=== PATIENT | male | born 1950 | race African-American/Black ===

== ENCOUNTER 2021-08-12 22:10 | Inpatient (IN) ==
[2021-08-13 00:29] LABS: Calcium 8.4 MG/DL (8.5-10.1); Osmolality,Calculated 274.8 MOS/KG (273-304); Potassium 3.3 MMOL/L (3.5-5.1)
[2021-08-13 00:48] LABS: Basophils % 0.2 % (0.0-0.8); Eosinophils % 0.1 % (0.00-10.9); Hematocrit 44.7 VOL% (42.0-52.0); Hemoglobin 14.4 GM/DL (14.0-18.0); Immature Granulocytes % 0.5 %; Immature Granulocytes Absolute 0.06 #; Lymphocytes # 0.7 10*3/uL (1.4-4.0); Lymphocytes % 5.3 % (21.2-54.2); Mean Corpuscular HGB Conc 32.2 GM/DL (32-36); Mean Corpuscular Volume 89.6 FL (87-102); Mean Platelet Volume 9.7 FL (9.6-12.0); Monocytes % 6.2 % (1.7-12.7); Neutrophils % 87.7 % (38.7-73.9); Platelet Count 205 T/CUMM (130-400); Red Blood Count 4.99 MC/CUMM (3.8-5.5); Red Cell Distribution Width 14.8 % (9.3-17.3); White Blood Count 12.9 T/CUMM (4-12)
[2021-08-13] MEDS ORDERED: PIPERACILLIN/TAZOBACTAM 3,375 MG in SODIUM CHLORIDE 0.9% 100 ML IV STA (01:55)
[2021-08-13] MEDS ORDERED: ONDANSETRON 4 MG/2 ML VIAL ONE (02:55)
[2021-08-13] MEDS ORDERED: fentaNYL 100 MCG/2 ML VIAL ONE (02:56)
[2021-08-13] MEDS ORDERED: ONDANSETRON 4 MG/2 ML VIAL IV STA (04:38)
[2021-08-13] MEDS ORDERED: fentaNYL 100 MCG/2 ML VIAL IV STA (04:38)
[2021-08-13] MEDS ORDERED: HYDROmorphone 2 MG/1 ML VIAL ONE (04:43)
[2021-08-13] MEDS ORDERED: HYDROmorphone 2 MG/1 ML VIAL IV STA (04:47)
[2021-08-13] MEDS ORDERED: DEXTROSE 50% 25 GM/50 ML SYRINGE IV PRN (07:58)
[2021-08-13] MEDS ORDERED: GLUCAGON 1 MG VIAL IM PRN (07:58)
[2021-08-13] MEDS ORDERED: hydrALAZINE 20 MG/1 ML VIAL IV PRN (07:58)
[2021-08-13] MEDS ORDERED: ACETAMINOPHEN 325 MG TABLET PO PRN (07:58)
[2021-08-13] MEDS ORDERED: ONDANSETRON 4 MG/2 ML VIAL IV PRN (07:58)
[2021-08-13] MEDS ORDERED: NICOTINE 21 MG/24 HR PATCH TRANSDERM PRN (07:58)
[2021-08-13] MEDS ORDERED: LORazepam 2 MG/1 ML VIAL IV PRN (08:00)
[2021-08-13] MEDS ORDERED: THIAMINE INJ 100 MG, FOLIC ACID INJ 1 MG, MAGNESIUM SULF INJ 2 GM, MULTIVITAMIN INJ 10 ... IV SCH (08:00)
[2021-08-13] MEDS: PIPERACILLIN/TAZOBACTAM 3,375 MG in SODIUM CHLORIDE 0.9% 100 ML IV SCH ×2 (08:20→17:15)
[2021-08-13 08:28] LABS: Basophils % 0.2 % (0.0-0.8); Hematocrit 45.3 VOL% (42.0-52.0); Hemoglobin 14.4 GM/DL (14.0-18.0); Immature Granulocytes % 0.6 %; Immature Granulocytes Absolute 0.08 #; Lymphocytes # 0.9 10*3/uL (1.4-4.0); Lymphocytes % 6.6 % (21.2-54.2); Mean Corpuscular HGB Conc 31.8 GM/DL (32-36); Mean Corpuscular Volume 90.2 FL (87-102); Mean Platelet Volume 9.4 FL (9.6-12.0); Monocytes % 5.1 % (1.7-12.7); Neutrophils % 87.5 % (38.7-73.9); Platelet Count 206 T/CUMM (130-400); Red Blood Count 5.02 MC/CUMM (3.8-5.5); White Blood Count 13.5 T/CUMM (4-12)
[2021-08-13 08:39] LABS: INR 1.1; PT Patient Result 12.3 SECS (10.5-12.0)
[2021-08-13 08:50] LABS: Albumin 3.1 G/DL (3.4-5.0); Bilirubin,Total 0.8 MG/DL (0.20-1.00); Potassium 3.9 MMOL/L (3.5-5.1); Total Protein 7.9 G/DL (6.4-8.2)
[2021-08-13 09:07] LABS: Risk Ratio 2.34; VLDL Cholesterol 11.8 MG/DL
[2021-08-13] MEDS: DEXT 5% NACL 0.45% KCL 20 MEQ 20 MEQ/1,000 ML BAG IV SCH ×2 (13:25→23:37)
[2021-08-13] MEDS: ATORVASTATIN 80 MG TABLET PO SCH (23:38)
[2021-08-14] MEDS ORDERED: THIAMINE INJ 100 MG, FOLIC ACID INJ 1 MG, MAGNESIUM SULF INJ 2 GM, MULTIVITAMIN INJ 10 ... IV SCH (01:00)
[2021-08-14] MEDS: HYDROmorphone 2 MG/1 ML VIAL IV PRN (01:19)
[2021-08-14] MEDS: PIPERACILLIN/TAZOBACTAM 3,375 MG in SODIUM CHLORIDE 0.9% 100 ML IV SCH ×4 (01:33→23:55)
[2021-08-14] MEDS: DEXT 5% NACL 0.45% KCL 20 MEQ 20 MEQ/1,000 ML BAG IV SCH ×2 (03:08→13:56)
[2021-08-14 05:01] LABS: Basophils % 0.2 % (0.0-0.8); Eosinophils # 0.1 10*3/uL (0.0-0.87); Eosinophils % 0.6 % (0.00-10.9); Hematocrit 44.4 VOL% (42.0-52.0); Hemoglobin 14.1 GM/DL (14.0-18.0); Immature Granulocytes % 0.4 %; Immature Granulocytes Absolute 0.04 #; Lymphocytes # 0.7 10*3/uL (1.4-4.0); Lymphocytes % 7.7 % (21.2-54.2); Mean Corpuscular HGB Conc 31.8 GM/DL (32-36); Mean Corpuscular Volume 91.7 FL (87-102); Mean Platelet Volume 9.6 FL (9.6-12.0); Monocytes % 6.3 % (1.7-12.7); Neutrophils % 84.8 % (38.7-73.9); Platelet Count 209 T/CUMM (130-400); Red Blood Count 4.84 MC/CUMM (3.8-5.5); White Blood Count 9.4 T/CUMM (4-12)
[2021-08-14 05:34] LABS: Albumin 2.9 G/DL (3.4-5.0); Bilirubin,Total 2.1 MG/DL (0.20-1.00); Calcium 8.3 MG/DL (8.5-10.1); Potassium 3.6 MMOL/L (3.5-5.1); Total Protein 7.7 G/DL (6.4-8.2)
[2021-08-14] MEDS: CLOPIDOGREL 75 MG TABLET PO SCH (08:55)
[2021-08-14] MEDS ORDERED: LACTATED RINGERS 500 ML IV ONE (10:25)
[2021-08-14] MEDS: ATORVASTATIN 80 MG TABLET PO SCH (21:30)
[2021-08-15] MEDS: HYDROmorphone 2 MG/1 ML VIAL IV PRN ×2 (00:54→23:21)
[2021-08-15 05:04] LABS: Basophils % 0.2 % (0.0-0.8); Eosinophils # 0.3 10*3/uL (0.0-0.87); Eosinophils % 4.3 % (0.00-10.9); Hematocrit 40.1 VOL% (42.0-52.0); Hemoglobin 12.8 GM/DL (14.0-18.0); Immature Granulocytes % 0.3 %; Immature Granulocytes Absolute 0.02 #; Lymphocytes % 14.9 % (21.2-54.2); Mean Corpuscular HGB Conc 31.9 GM/DL (32-36); Mean Corpuscular Volume 91.6 FL (87-102); Mean Platelet Volume 9.3 FL (9.6-12.0); Monocytes % 9.9 % (1.7-12.7); Neutrophils % 70.4 % (38.7-73.9); Platelet Count 204 T/CUMM (130-400); Red Blood Count 4.38 MC/CUMM (3.8-5.5); Red Cell Distribution Width 14.7 % (9.3-17.3); White Blood Count 6.4 T/CUMM (4-12)
[2021-08-15 05:48] LABS: Albumin 2.6 G/DL (3.4-5.0); Bilirubin,Total 1.5 MG/DL (0.20-1.00); Calcium 8.3 MG/DL (8.5-10.1); Osmolality,Calculated 272.1 MOS/KG (273-304); Potassium 3.6 MMOL/L (3.5-5.1); Total Protein 7.1 G/DL (6.4-8.2)
[2021-08-15] MEDS: DEXT 5% NACL 0.45% KCL 20 MEQ 20 MEQ/1,000 ML BAG IV SCH ×2 (07:00→23:15)
[2021-08-15] MEDS: PIPERACILLIN/TAZOBACTAM 3,375 MG in SODIUM CHLORIDE 0.9% 100 ML IV SCH ×3 (08:49→23:55)
[2021-08-15] MEDS: THIAMINE 100 MG TABLET PO SCH (09:47)
[2021-08-15] MEDS: MULTIVITAMIN (CENTRUM) TABLET PO SCH (09:47)
[2021-08-15] MEDS: FOLIC ACID 1 MG TABLET PO SCH (09:47)
[2021-08-15] MEDS: CLOPIDOGREL 75 MG TABLET PO SCH (10:42)
[2021-08-15] MEDS: ATORVASTATIN 80 MG TABLET PO SCH (21:00)
[2021-08-16 04:33] LABS: Basophils % 0.5 % (0.0-0.8); Eosinophils # 0.2 10*3/uL (0.0-0.87); Eosinophils % 4.2 % (0.00-10.9); Hemoglobin 12.7 GM/DL (14.0-18.0); Immature Granulocytes % 0.9 %; Immature Granulocytes Absolute 0.05 #; Lymphocytes # 0.8 10*3/uL (1.4-4.0); Lymphocytes % 14.4 % (21.2-54.2); Mean Corpuscular HGB Conc 31.8 GM/DL (32-36); Mean Corpuscular Volume 91.3 FL (87-102); Mean Platelet Volume 9.4 FL (9.6-12.0); Monocytes % 10.6 % (1.7-12.7); Neutrophils % 69.4 % (38.7-73.9); Platelet Count 217 T/CUMM (130-400); Red Blood Count 4.38 MC/CUMM (3.8-5.5); Red Cell Distribution Width 14.5 % (9.3-17.3); White Blood Count 5.8 T/CUMM (4-12)
[2021-08-16 04:56] LABS: Alanine Aminotransferase < 9 U/L (16-61); Albumin 2.8 G/DL (3.4-5.0); Alkaline Phosphatase 62 U/L (45-117); Aspartate Amino Transferase 16 U/L (0-37); Blood Urea Nitrogen 16 MG/DL (7-18); Calcium 8.9 MG/DL (8.5-10.1); Carbon Dioxide 31 MMOL/L (21-32); Estimated Glom Filtration Rate 85 ML/MIN; Glucose 103 MG/DL (74-106); Potassium 3.7 MMOL/L (3.5-5.1); Sodium 136 MMOL/L (136-145); Total Protein 7.2 G/DL (6.4-8.2)
[2021-08-16] MEDS: PIPERACILLIN/TAZOBACTAM 3,375 MG in SODIUM CHLORIDE 0.9% 100 ML IV SCH ×3 (09:38→23:42)
[2021-08-16] MEDS: DEXT 5% NACL 0.45% KCL 20 MEQ 20 MEQ/1,000 ML BAG IV SCH ×2 (09:41→17:34)
[2021-08-16] MEDS: MULTIVITAMIN (CENTRUM) TABLET PO SCH (09:41)
[2021-08-16] MEDS: CLOPIDOGREL 75 MG TABLET PO SCH (09:41)
[2021-08-16] MEDS: FOLIC ACID 1 MG TABLET PO SCH (09:41)
[2021-08-16] MEDS: THIAMINE 100 MG TABLET PO SCH (09:41)
[2021-08-16] MEDS: ATORVASTATIN 80 MG TABLET PO SCH (21:03)
[2021-08-17 05:36] LABS: Bilirubin,Urine Negative (Negative); Blood, Urine Negative (Negative); Glucose,Urine (UA) Negative (Negative); Ketones,Urine Negative (Negative); Nitrite,Urine Negative (Negative); Protein,Urine 30 MG/DL; RBC,Urine 2 /HPF (0-4); Squamous Epithelial Cell,Urine Occasional /HPF (0-10); Urine Appearance CLEAR (Clear); Urine Color Yellow (Yellow); Urine Specific Gravity 1.025 (1.001-1.035); Urine Urobilinogen < 2.0 EU/DL (<2.0)
[2021-08-17 05:36] LABS: Basophils % 0.3 % (0.0-0.8); Eosinophils # 0.1 10*3/uL (0.0-0.87); Eosinophils % 2.4 % (0.00-10.9); Hemoglobin 12.7 GM/DL (14.0-18.0); Immature Granulocytes % 0.3 %; Immature Granulocytes Absolute 0.02 #; Lymphocytes # 1.1 10*3/uL (1.4-4.0); Lymphocytes % 18.8 % (21.2-54.2); Mean Corpuscular HGB Conc 32.6 GM/DL (32-36); Mean Corpuscular Volume 89.9 FL (87-102); Mean Platelet Volume 8.9 FL (9.6-12.0); Monocytes % 10.5 % (1.7-12.7); Neutrophils % 67.7 % (38.7-73.9); Platelet Count 234 T/CUMM (130-400); Red Blood Count 4.34 MC/CUMM (3.8-5.5); Red Cell Distribution Width 14.3 % (9.3-17.3); White Blood Count 5.8 T/CUMM (4-12)
[2021-08-17 06:04] LABS: Albumin 2.5 G/DL (3.4-5.0); Bilirubin,Total 1.2 MG/DL (0.20-1.00); Calcium 8.6 MG/DL (8.5-10.1); Osmolality,Calculated 278.5 MOS/KG (273-304); Potassium 3.3 MMOL/L (3.5-5.1); Total Protein 6.7 G/DL (6.4-8.2)
[2021-08-17] MEDS: MULTIVITAMIN (CENTRUM) TABLET PO SCH (08:43)
[2021-08-17] MEDS: FOLIC ACID 1 MG TABLET PO SCH (08:43)
[2021-08-17] MEDS: CLOPIDOGREL 75 MG TABLET PO SCH (08:43)
[2021-08-17] MEDS: THIAMINE 100 MG TABLET PO SCH (08:44)
[2021-08-17] MEDS: PANTOPRAZOLE 40 MG VIAL IV SCH (08:44)
[2021-08-17] MEDS: PIPERACILLIN/TAZOBACTAM 3,375 MG in SODIUM CHLORIDE 0.9% 100 ML IV SCH ×2 (08:44→16:26)
[2021-08-17] MEDS: DEXT 5% NACL 0.45% KCL 20 MEQ 20 MEQ/1,000 ML BAG IV SCH (10:34)
[2021-08-17] MEDS: POTASSIUM CHLORIDE RIDER 10 MEQ/100 ML PREMIX IV PRN ×4 (10:34→16:26)
[2021-08-17] MEDS: ATORVASTATIN 80 MG TABLET PO SCH (21:03)
[2021-08-18] MEDS: PIPERACILLIN/TAZOBACTAM 3,375 MG in SODIUM CHLORIDE 0.9% 100 ML IV SCH ×3 (00:01→17:43)
[2021-08-18] MEDS: DEXT 5% NACL 0.45% KCL 20 MEQ 20 MEQ/1,000 ML BAG IV SCH ×3 (04:51→20:20)
[2021-08-18 06:27] LABS: Basophils % 0.6 % (0.0-0.8); Eosinophils # 0.2 10*3/uL (0.0-0.87); Eosinophils % 2.8 % (0.00-10.9); Hemoglobin 12.7 GM/DL (14.0-18.0); Immature Granulocytes % 0.3 %; Immature Granulocytes Absolute 0.02 #; Lymphocytes # 1.2 10*3/uL (1.4-4.0); Lymphocytes % 18.3 % (21.2-54.2); Mean Corpuscular HGB Conc 31.8 GM/DL (32-36); Mean Corpuscular Volume 90.3 FL (87-102); Mean Platelet Volume 8.9 FL (9.6-12.0); Monocytes % 10.9 % (1.7-12.7); Neutrophils % 67.1 % (38.7-73.9); Platelet Count 250 T/CUMM (130-400); Red Blood Count 4.43 MC/CUMM (3.8-5.5); Red Cell Distribution Width 14.4 % (9.3-17.3); White Blood Count 6.4 T/CUMM (4-12)
[2021-08-18 06:48] LABS: Eosinophils 3 % (0-10); Hypochromia 1+; Lymphocytes 17 % (20-55); Microcytosis 1+; Segmented Neutrophils 70 % (50-85); Total Cells Counted 100
[2021-08-18 06:49] LABS: Albumin 2.6 G/DL (3.4-5.0); Bilirubin,Total 0.4 MG/DL (0.20-1.00); Calcium 8.6 MG/DL (8.5-10.1); Osmolality,Calculated 272.8 MOS/KG (273-304); Potassium 3.6 MMOL/L (3.5-5.1); Total Protein 6.8 G/DL (6.4-8.2)
[2021-08-18] MEDS: CLOPIDOGREL 75 MG TABLET PO SCH (09:10)
[2021-08-18] MEDS: lisinopriL 10 MG TABLET PO SCH (09:10)
[2021-08-18] MEDS: THIAMINE 100 MG TABLET PO SCH (09:11)
[2021-08-18] MEDS: MULTIVITAMIN (CENTRUM) TABLET PO SCH (09:11)
[2021-08-18] MEDS: FOLIC ACID 1 MG TABLET PO SCH (09:11)
[2021-08-18] MEDS: PANTOPRAZOLE 40 MG VIAL IV SCH (09:11)
[2021-08-18] MEDS: ATORVASTATIN 80 MG TABLET PO SCH (21:43)
[2021-08-19] MEDS: DEXT 5% NACL 0.45% KCL 20 MEQ 20 MEQ/1,000 ML BAG IV SCH ×3 (00:40→15:42)
[2021-08-19] MEDS: PIPERACILLIN/TAZOBACTAM 3,375 MG in SODIUM CHLORIDE 0.9% 100 ML IV SCH ×4 (00:40→23:48)
[2021-08-19 06:44] LABS: Basophils % 0.5 % (0.0-0.8); Eosinophils # 0.3 10*3/uL (0.0-0.87); Eosinophils % 3.8 % (0.00-10.9); Hematocrit 39.9 VOL% (42.0-52.0); Hemoglobin 12.7 GM/DL (14.0-18.0); Immature Granulocytes % 0.5 %; Immature Granulocytes Absolute 0.03 #; Lymphocytes # 1.3 10*3/uL (1.4-4.0); Lymphocytes % 19.2 % (21.2-54.2); Mean Corpuscular HGB Conc 31.8 GM/DL (32-36); Mean Corpuscular Volume 89.5 FL (87-102); Mean Platelet Volume 8.9 FL (9.6-12.0); Monocytes % 9.2 % (1.7-12.7); Neutrophils % 66.8 % (38.7-73.9); Platelet Count 296 T/CUMM (130-400); Red Blood Count 4.46 MC/CUMM (3.8-5.5); Red Cell Distribution Width 14.2 % (9.3-17.3); White Blood Count 6.6 T/CUMM (4-12)
[2021-08-19 07:11] LABS: Alanine Aminotransferase 15 U/L (16-61); Albumin 2.7 G/DL (3.4-5.0); Alkaline Phosphatase 54 U/L (45-117); Aspartate Amino Transferase 18 U/L (0-37); Bilirubin,Total < 0.39 MG/DL (0.20-1.00); Blood Urea Nitrogen 10 MG/DL (7-18); Carbon Dioxide 27 MMOL/L (21-32); Estimated Glom Filtration Rate 84 ML/MIN; Glucose 95 MG/DL (74-106); Potassium 3.7 MMOL/L (3.5-5.1); Sodium 136 MMOL/L (136-145); Total Protein 7.1 G/DL (6.4-8.2)
[2021-08-19] MEDS: FOLIC ACID 1 MG TABLET PO SCH (10:03)
[2021-08-19] MEDS: MULTIVITAMIN (CENTRUM) TABLET PO SCH (10:03)
[2021-08-19] MEDS: CLOPIDOGREL 75 MG TABLET PO SCH (10:03)
[2021-08-19] MEDS: lisinopriL 10 MG TABLET PO SCH (10:03)
[2021-08-19] MEDS: PANTOPRAZOLE 40 MG VIAL IV SCH (10:04)
[2021-08-19] MEDS: THIAMINE 100 MG TABLET PO SCH (10:07)
[2021-08-19] MEDS: ATORVASTATIN 80 MG TABLET PO SCH (21:31)
[2021-08-20 06:00] LABS: Basophils % 0.5 % (0.0-0.8); Eosinophils # 0.2 10*3/uL (0.0-0.87); Eosinophils % 4.2 % (0.00-10.9); Hemoglobin 12.7 GM/DL (14.0-18.0); Immature Granulocytes % 0.5 %; Immature Granulocytes Absolute 0.03 #; Lymphocytes # 1.3 10*3/uL (1.4-4.0); Lymphocytes % 22.7 % (21.2-54.2); Mean Corpuscular HGB Conc 31.8 GM/DL (32-36); Mean Corpuscular Volume 90.1 FL (87-102); Monocytes % 10.6 % (1.7-12.7); Neutrophils % 61.5 % (38.7-73.9); Platelet Count 315 T/CUMM (130-400); Red Blood Count 4.44 MC/CUMM (3.8-5.5); Red Cell Distribution Width 14.3 % (9.3-17.3); White Blood Count 5.8 T/CUMM (4-12)
[2021-08-20 06:25] LABS: Eosinophils 7 % (0-10); Hypochromia Slight; Lymphocytes 20 % (20-55); Microcytosis Slight; Platelet Estimate Adequate; Segmented Neutrophils 67 % (50-85); Total Cells Counted 100
[2021-08-20 06:32] LABS: Albumin 2.7 G/DL (3.4-5.0); Bilirubin,Total 0.5 MG/DL (0.20-1.00); Calcium 8.8 MG/DL (8.5-10.1); Osmolality,Calculated 273.7 MOS/KG (273-304); Potassium 3.7 MMOL/L (3.5-5.1); Total Protein 6.9 G/DL (6.4-8.2)
[2021-08-20] MEDS: DEXT 5% NACL 0.45% KCL 20 MEQ 20 MEQ/1,000 ML BAG IV SCH ×2 (09:48→20:44)
[2021-08-20] MEDS: PIPERACILLIN/TAZOBACTAM 3,375 MG in SODIUM CHLORIDE 0.9% 100 ML IV SCH ×2 (09:49→15:56)
[2021-08-20] MEDS: PANTOPRAZOLE 40 MG VIAL IV SCH (09:51)
[2021-08-20] MEDS: THIAMINE 100 MG TABLET PO SCH (09:53)
[2021-08-20] MEDS: MULTIVITAMIN (CENTRUM) TABLET PO SCH (09:53)
[2021-08-20] MEDS: FOLIC ACID 1 MG TABLET PO SCH (09:53)
[2021-08-20] MEDS: lisinopriL 10 MG TABLET PO SCH (09:54)
[2021-08-20] MEDS: ATORVASTATIN 80 MG TABLET PO SCH (20:41)
[2021-08-21] MEDS: PIPERACILLIN/TAZOBACTAM 3,375 MG in SODIUM CHLORIDE 0.9% 100 ML IV SCH ×3 (01:15→17:26)
[2021-08-21 05:17] LABS: Basophils % 0.5 % (0.0-0.8); Eosinophils # 0.2 10*3/uL (0.0-0.87); Hematocrit 39.3 VOL% (42.0-52.0); Hemoglobin 12.4 GM/DL (14.0-18.0); Immature Granulocytes % 0.3 %; Immature Granulocytes Absolute 0.02 #; Lymphocytes # 1.2 10*3/uL (1.4-4.0); Lymphocytes % 21.1 % (21.2-54.2); Mean Corpuscular HGB Conc 31.6 GM/DL (32-36); Mean Corpuscular Volume 90.1 FL (87-102); Mean Platelet Volume 8.7 FL (9.6-12.0); Monocytes % 9.5 % (1.7-12.7); Neutrophils % 64.6 % (38.7-73.9); Platelet Count 323 T/CUMM (130-400); Red Blood Count 4.36 MC/CUMM (3.8-5.5); White Blood Count 5.8 T/CUMM (4-12)
[2021-08-21 05:37] LABS: Calcium 8.8 MG/DL (8.5-10.1); Osmolality,Calculated 274.5 MOS/KG (273-304); Potassium 3.8 MMOL/L (3.5-5.1)
[2021-08-21] MEDS: DEXT 5% NACL 0.45% KCL 20 MEQ 20 MEQ/1,000 ML BAG IV SCH ×3 (09:33→20:58)
[2021-08-21] MEDS: THIAMINE 100 MG TABLET PO SCH (09:33)
[2021-08-21] MEDS: lisinopriL 10 MG TABLET PO SCH (09:33)
[2021-08-21] MEDS: MULTIVITAMIN (CENTRUM) TABLET PO SCH (09:33)
[2021-08-21] MEDS: PANTOPRAZOLE 40 MG VIAL IV SCH (09:33)
[2021-08-21] MEDS: FOLIC ACID 1 MG TABLET PO SCH (09:33)
[2021-08-21] MEDS: POTASSIUM CHLORIDE RIDER 10 MEQ/100 ML PREMIX IV SCH ×3 (13:08→17:52)
[2021-08-21] MEDS ORDERED: POTASSIUM CHLORIDE RIDER 10 MEQ/100 ML PREMIX IV SCH (18:00)
[2021-08-21] MEDS ORDERED: CLOPIDOGREL 75 MG TABLET PO SCH (18:30)
[2021-08-21] MEDS: ATORVASTATIN 80 MG TABLET PO SCH (21:12)
[2021-08-21] MEDS: CLOPIDOGREL 75 MG TABLET PO SCH (21:13)
[2021-08-22] MEDS: PIPERACILLIN/TAZOBACTAM 3,375 MG in SODIUM CHLORIDE 0.9% 100 ML IV SCH ×3 (01:34→17:38)
[2021-08-22] MEDS: DEXT 5% NACL 0.45% KCL 20 MEQ 20 MEQ/1,000 ML BAG IV SCH ×3 (03:40→19:17)
[2021-08-22 05:04] LABS: Basophils % 0.6 % (0.0-0.8); Eosinophils # 0.3 10*3/uL (0.0-0.87); Eosinophils % 4.3 % (0.00-10.9); Hematocrit 39.8 VOL% (42.0-52.0); Hemoglobin 12.3 GM/DL (14.0-18.0); Immature Granulocytes % 0.5 %; Immature Granulocytes Absolute 0.03 #; Lymphocytes # 1.5 10*3/uL (1.4-4.0); Lymphocytes % 23.3 % (21.2-54.2); Mean Corpuscular HGB Conc 30.9 GM/DL (32-36); Mean Corpuscular Volume 91.9 FL (87-102); Monocytes % 8.8 % (1.7-12.7); Neutrophils % 62.5 % (38.7-73.9); Platelet Count 350 T/CUMM (130-400); Red Blood Count 4.33 MC/CUMM (3.8-5.5); White Blood Count 6.2 T/CUMM (4-12)
[2021-08-22 05:20] LABS: Calcium 8.5 MG/DL (8.5-10.1); Osmolality,Calculated 274.5 MOS/KG (273-304); Potassium 4.2 MMOL/L (3.5-5.1)
[2021-08-22] MEDS: MULTIVITAMIN (CENTRUM) TABLET PO SCH (09:19)
[2021-08-22] MEDS: PANTOPRAZOLE 40 MG VIAL IV SCH (09:19)
[2021-08-22] MEDS: THIAMINE 100 MG TABLET PO SCH (09:19)
[2021-08-22] MEDS: FOLIC ACID 1 MG TABLET PO SCH (09:19)
[2021-08-22] MEDS: lisinopriL 10 MG TABLET PO SCH (09:20)
[2021-08-22] MEDS: CLOPIDOGREL 75 MG TABLET PO SCH (09:20)
[2021-08-22] MEDS: ATORVASTATIN 80 MG TABLET PO SCH (20:11)
[2021-08-23] MEDS: PIPERACILLIN/TAZOBACTAM 3,375 MG in SODIUM CHLORIDE 0.9% 100 ML IV SCH ×3 (01:06→16:07)
[2021-08-23 06:20] LABS: Basophils % 0.5 % (0.0-0.8); Eosinophils # 0.3 10*3/uL (0.0-0.87); Eosinophils % 4.3 % (0.00-10.9); Hematocrit 38.1 VOL% (42.0-52.0); Hemoglobin 12.2 GM/DL (14.0-18.0); Immature Granulocytes % 0.4 %; Immature Granulocytes Absolute 0.03 #; Lymphocytes # 1.4 10*3/uL (1.4-4.0); Lymphocytes % 19.4 % (21.2-54.2); Mean Corpuscular Volume 91.1 FL (87-102); Mean Platelet Volume 8.9 FL (9.6-12.0); Monocytes % 6.8 % (1.7-12.7); Neutrophils % 68.6 % (38.7-73.9); Platelet Count 358 T/CUMM (130-400); Red Blood Count 4.18 MC/CUMM (3.8-5.5); Red Cell Distribution Width 14.2 % (9.3-17.3); White Blood Count 7.4 T/CUMM (4-12)
[2021-08-23 06:41] LABS: Calcium 8.7 MG/DL (8.5-10.1); Osmolality,Calculated 273.5 MOS/KG (273-304); Potassium 4.2 MMOL/L (3.5-5.1)
[2021-08-23] MEDS: FOLIC ACID 1 MG TABLET PO SCH (10:38)
[2021-08-23] MEDS: lisinopriL 10 MG TABLET PO SCH (10:38)
[2021-08-23] MEDS: CLOPIDOGREL 75 MG TABLET PO SCH (10:38)
[2021-08-23] MEDS: PANTOPRAZOLE 40 MG VIAL IV SCH (10:39)
[2021-08-23] MEDS: MULTIVITAMIN (CENTRUM) TABLET PO SCH (10:39)
[2021-08-23] MEDS: THIAMINE 100 MG TABLET PO SCH (10:39)
[2021-08-23] MEDS: DEXT 5% NACL 0.45% KCL 20 MEQ 20 MEQ/1,000 ML BAG IV SCH ×2 (11:21→12:27)
[2021-08-23] MEDS: ATORVASTATIN 80 MG TABLET PO SCH (20:54)
[2021-08-24] MEDS: PIPERACILLIN/TAZOBACTAM 3,375 MG in SODIUM CHLORIDE 0.9% 100 ML IV SCH ×3 (01:01→16:49)
[2021-08-24] MEDS: DEXT 5% NACL 0.45% KCL 20 MEQ 20 MEQ/1,000 ML BAG IV SCH ×3 (04:09→11:10)
[2021-08-24] MEDS: CLOPIDOGREL 75 MG TABLET PO SCH (08:36)
[2021-08-24] MEDS: THIAMINE 100 MG TABLET PO SCH (08:36)
[2021-08-24] MEDS: MULTIVITAMIN (CENTRUM) TABLET PO SCH (08:36)
[2021-08-24] MEDS: FOLIC ACID 1 MG TABLET PO SCH (08:36)
[2021-08-24] MEDS: lisinopriL 10 MG TABLET PO SCH (08:36)
[2021-08-24] MEDS: PANTOPRAZOLE 40 MG VIAL IV SCH (08:36)
[2021-08-24 08:43] LABS: Basophils % 0.5 % (0.0-0.8); Eosinophils # 0.3 10*3/uL (0.0-0.87); Eosinophils % 3.5 % (0.00-10.9); Hematocrit 38.2 VOL% (42.0-52.0); Immature Granulocytes % 0.5 %; Immature Granulocytes Absolute 0.04 #; Lymphocytes # 1.3 10*3/uL (1.4-4.0); Lymphocytes % 17.3 % (21.2-54.2); Mean Corpuscular HGB Conc 31.4 GM/DL (32-36); Mean Corpuscular Volume 90.5 FL (87-102); Mean Platelet Volume 8.7 FL (9.6-12.0); Monocytes % 5.6 % (1.7-12.7); Neutrophils % 72.6 % (38.7-73.9); Platelet Count 353 T/CUMM (130-400); Red Blood Count 4.22 MC/CUMM (3.8-5.5); Red Cell Distribution Width 14.2 % (9.3-17.3); White Blood Count 7.7 T/CUMM (4-12)
[2021-08-24] MEDS: ATORVASTATIN 80 MG TABLET PO SCH (20:29)
[2021-08-25] MEDS: DEXT 5% NACL 0.45% KCL 20 MEQ 20 MEQ/1,000 ML BAG IV SCH ×5 (00:29→17:50)
[2021-08-25] MEDS: PIPERACILLIN/TAZOBACTAM 3,375 MG in SODIUM CHLORIDE 0.9% 100 ML IV SCH ×3 (01:15→16:44)
[2021-08-25 06:18] LABS: Basophils # 0.1 10*3/uL (0.0-0.2); Basophils % 0.8 % (0.0-0.8); Eosinophils # 0.3 10*3/uL (0.0-0.87); Hemoglobin 12.1 GM/DL (14.0-18.0); Immature Granulocytes % 0.3 %; Immature Granulocytes Absolute 0.02 #; Lymphocytes # 1.5 10*3/uL (1.4-4.0); Lymphocytes % 20.6 % (21.2-54.2); Mean Corpuscular Volume 91.3 FL (87-102); Mean Platelet Volume 9.3 FL (9.6-12.0); Monocytes % 7.2 % (1.7-12.7); Neutrophils % 67.1 % (38.7-73.9); Platelet Count 399 T/CUMM (130-400); Red Blood Count 4.27 MC/CUMM (3.8-5.5); Red Cell Distribution Width 14.1 % (9.3-17.3); White Blood Count 7.5 T/CUMM (4-12)
[2021-08-25 06:54] LABS: Calcium 8.9 MG/DL (8.5-10.1); Osmolality,Calculated 274.4 MOS/KG (273-304); Potassium 4.2 MMOL/L (3.5-5.1)
[2021-08-25 07:10] LABS: Eosinophils 10 % (0-10); Lymphocytes 21 % (20-55); Platelet Estimate Adequate; Segmented Neutrophils 61 % (50-85); Total Cells Counted 100
[2021-08-25 07:11] LABS: Hypochromia Slight; Microcytosis Slight
[2021-08-25] MEDS: FOLIC ACID 1 MG TABLET PO SCH (09:58)
[2021-08-25] MEDS: THIAMINE 100 MG TABLET PO SCH (09:58)
[2021-08-25] MEDS: CLOPIDOGREL 75 MG TABLET PO SCH (09:58)
[2021-08-25] MEDS: lisinopriL 10 MG TABLET PO SCH (09:58)
[2021-08-25] MEDS: PANTOPRAZOLE 40 MG VIAL IV SCH (09:58)
[2021-08-25] MEDS: MULTIVITAMIN (CENTRUM) TABLET PO SCH (09:58)
[2021-08-25] MEDS: ATORVASTATIN 80 MG TABLET PO SCH (21:17)
[2021-08-26] MEDS: PIPERACILLIN/TAZOBACTAM 3,375 MG in SODIUM CHLORIDE 0.9% 100 ML IV SCH ×2 (01:17→08:03)
[2021-08-26] MEDS: DEXT 5% NACL 0.45% KCL 20 MEQ 20 MEQ/1,000 ML BAG IV SCH ×2 (01:17→08:03)
[2021-08-26 06:36] LABS: Basophils # 0.1 10*3/uL (0.0-0.2); Basophils % 0.8 % (0.0-0.8); Eosinophils # 0.3 10*3/uL (0.0-0.87); Eosinophils % 3.9 % (0.00-10.9); Hemoglobin 12.1 GM/DL (14.0-18.0); Immature Granulocytes % 0.3 %; Immature Granulocytes Absolute 0.02 #; Lymphocytes # 1.4 10*3/uL (1.4-4.0); Lymphocytes % 21.3 % (21.2-54.2); Mean Corpuscular HGB Conc 31.8 GM/DL (32-36); Mean Corpuscular Volume 90.3 FL (87-102); Mean Platelet Volume 9.3 FL (9.6-12.0); Monocytes % 6.9 % (1.7-12.7); Neutrophils % 66.8 % (38.7-73.9); Platelet Count 404 T/CUMM (130-400); Red Blood Count 4.21 MC/CUMM (3.8-5.5); White Blood Count 6.4 T/CUMM (4-12)
[2021-08-26 06:54] LABS: Alanine Aminotransferase 15 U/L (16-61); Albumin 2.7 G/DL (3.4-5.0); Alkaline Phosphatase 59 U/L (45-117); Aspartate Amino Transferase 16 U/L (0-37); Bilirubin,Total < 0.39 MG/DL (0.20-1.00); Blood Urea Nitrogen 6 MG/DL (7-18); Calcium 8.9 MG/DL (8.5-10.1); Carbon Dioxide 25 MMOL/L (21-32); Estimated Glom Filtration Rate 76 ML/MIN; Glucose 88 MG/DL (74-106); Osmolality,Calculated 273.5 MOS/KG (273-304); Potassium 3.9 MMOL/L (3.5-5.1); Sodium 139 MMOL/L (136-145); Total Protein 6.9 G/DL (6.4-8.2)
[2021-08-26] MEDS: FOLIC ACID 1 MG TABLET PO SCH (08:04)
[2021-08-26] MEDS: lisinopriL 10 MG TABLET PO SCH (08:04)
[2021-08-26] MEDS: PANTOPRAZOLE 40 MG VIAL IV SCH (08:04)
[2021-08-26] MEDS: MULTIVITAMIN (CENTRUM) TABLET PO SCH (08:04)
[2021-08-26] MEDS: CLOPIDOGREL 75 MG TABLET PO SCH (08:04)
[2021-08-26] MEDS: THIAMINE 100 MG TABLET PO SCH (08:04)
[2021-08-26] MEDS ORDERED: ERTAPENEM 1,000 MG in SODIUM CHLORIDE 0.9% 100 ML IV SCH (12:00)
[2021-08-26 12:45] VITALS: BP 153/73
== END 2021-08-26 14:12 | disposition home health service (06) | DRG 371 ==
LOC: N.ED 22:10 → SUATTDRO 08-13 07:58 → N.EDINP 08-13 07:58 → N.5E 08-13 09:11
PROVIDERS: ADMIT Internal Medicine; ATTEND Internal Medicine